=== PATIENT | male | born 1950 | race Caucasian/White ===

== ENCOUNTER 2016-06-06 14:00 | Emergency (ER) | payer MEDICARE ==
[2016-06-06 15:57] LABS: HEMOGLOBIN 14.5 gm/dl (14.0-17.5); RED BLOOD COUNT 4.88 M/UL (4.20-5.50); WHITE BLOOD COUNT 5.9 K/UL (4.5-11.0)
[2016-06-06 16:08] LABS: BUN/CREATININE RATIO 24 (0-10)
== END 2016-06-06 17:30 | disposition home or self-care (01) ==
LOC: ER1 14:00
PROVIDERS: Physician Assistant
DX: E11.65 Type 2 diabetes mellitus with hyperglycemia (principal); E78.5 Hyperlipidemia, unspecified; Z79.84 Long term (current) use of oral hypoglycemic drugs; Z79.4 Long term (current) use of insulin; Z79.899 Other long term (current) drug therapy
CPT/HCPCS: 36415; 71010; 80053; 81001; 82009; 82962; 85025; 96360; 99285

== ENCOUNTER → 2016-07-01 | Outpatient (CLI) | payer MEDICARE | LOC: KOH-I 13:57 | DX: M25.512 Pain in left shoulder (principal) | CPT/HCPCS: 73030 ==

== ENCOUNTER → 2016-07-20 | Outpatient (CLI) | payer MEDICARE | LOC: CT 14:15 | DX: M25.512 Pain in left shoulder (principal); M19.012 Primary osteoarthritis, left shoulder | CPT/HCPCS: 73200 ==

== ENCOUNTER → 2020-05-13 | Outpatient (CLI) | payer MEDICARE | LOC: KOH-I 05-07 14:30 | DX: R42 Dizziness and giddiness (principal); M50.30 Other cervical disc degeneration, unspecified cervical region; G31.9 Degenerative disease of nervous system, unspecified; M50.321 Other cervical disc degeneration at C4-C5 level; M48.02 Spinal stenosis, cervical region | CPT/HCPCS: 70450; 72125 ==

== ENCOUNTER 2021-05-03 15:52 | Inpatient (IN) | payer MEDICARE, MEDICAID ==
[~2021-05-03] VITALS: Ht 175.3 cm; Wt 85.3 kg
[2021-05-03 16:50] LABS: HEMOGLOBIN 12.5 gm/dl (14.0-17.5); RED BLOOD COUNT 4.21 M/UL (4.20-5.50); WHITE BLOOD COUNT 10.7 K/UL (4.5-11.0)
[2021-05-03 17:20] LABS: BUN/CREATININE RATIO 22 (0-10)
--- NOTE | 2021-05-04 02:12 | NUR ---
ATTEMPT WAS MADE TO CALL THE EMERGENCY CONTACT ON FILE AND IT WAS A DISCONNECTED NUMBER. THE PT DOES NOT HAVE ANY ONE ELSES PHONE NUMBER AND HAS NO CELL PHONE. THE PT DOES NOT KNOW ALL OF HIS HOME MEDS OTHER THAN HIS PAIN MEDICATION BUT STATES HE DOES TAKE OTHERS.
[2021-05-04] MEDS ORDERED: OXYCODONE-ACET1 EACH PO (02:20)
[2021-05-04] MEDS ORDERED: FLOMAX 0.4 MG0.4 MG PO (02:21)
[2021-05-04] MEDS ORDERED: NOVOLOG FL100 UNIT/1 INJ (02:21)
[2021-05-04] MEDS ORDERED: ETODOLAC500 MG PO (02:21)
[2021-05-04] MEDS ORDERED: GABAPENTIN600 MG PO (02:22)
[2021-05-04] MEDS ORDERED: LEVEMIR FL100 UNIT/1 SQ (02:23)
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
[2021-05-04 05:46] LABS: HEMOGLOBIN 11.4 gm/dl (14.0-17.5); RED BLOOD COUNT 3.91 M/UL (4.20-5.50); WHITE BLOOD COUNT 9.9 K/UL (4.5-11.0)
[2021-05-04 05:59] LABS: BUN/CREATININE RATIO 31 (0-10)
[2021-05-04] MEDS ORDERED: FARXIGA10 MG PO (09:31)
[2021-05-04] MEDS ORDERED: SILVADENE20 GM TOP (09:31)
[2021-05-04] MEDS ORDERED: ZETIA10 MG PO (09:31)
[2021-05-05 10:17] LABS: HEMOGLOBIN 11.2 gm/dl (14.0-17.5); RED BLOOD COUNT 3.9 M/UL (4.20-5.50); WHITE BLOOD COUNT 10.6 K/UL (4.5-11.0)
[2021-05-05 10:38] LABS: BUN/CREATININE RATIO 56 (0-10)
[2021-05-06 06:20] LABS: HEMOGLOBIN 11.3 gm/dl (14.0-17.5); RED BLOOD COUNT 3.89 M/UL (4.20-5.50)
[2021-05-06 06:38] LABS: BUN/CREATININE RATIO 53 (0-10)
[2021-05-07 04:48] LABS: HEMOGLOBIN 11.6 gm/dl (14.0-17.5); RED BLOOD COUNT 4.13 M/UL (4.20-5.50)
[2021-05-07 04:53] LABS: WHITE BLOOD COUNT 6.3 K/UL (4.5-11.0)
[2021-05-07 05:14] LABS: BUN/CREATININE RATIO 39 (0-10)
[2021-05-07] MEDS ORDERED: ELIQUIS2.5 MG PO (09:29)
[2021-05-07] MEDS ORDERED: LANTUS INS100 UTS/M1 SC (09:29)
[2021-05-07] MEDS ORDERED: DECADRON6 MG PO (09:29)
[2021-05-07] MEDS ORDERED: IPRAT-ALBUT 0.5-3 ML INH (09:58)
[2021-05-07] MEDS ORDERED: OMNICEF 300 MG300 MG PO (09:58)
[2021-05-07] MEDS ORDERED: DOXYCYCLINE HY100 M2 PO (09:58)
== END 2021-05-07 18:49 | disposition home or self-care (01) | DRG 177 ==
LOC: ER1 15:52 → CDU 20:14 → MED SURG 4 20:14
PROVIDERS: Internal Medicine; Physician Assistant; ADMIT Internal Medicine
PROC: XW033E5 Introduction of Remdesivir Anti-infective into Peripheral Vein, Percutaneous Approach, New Technology Group 5 (ICD-10-PCS; 2021-05-03)
PROC: 3E0333Z Introduction of Anti-inflammatory into Peripheral Vein, Percutaneous Approach (ICD-10-PCS; 2021-05-03)
PROC: 8E0ZXY6 Isolation (ICD-10-PCS; principal; 2021-05-04)
PROC: XW033H5 Introduction of Tocilizumab into Peripheral Vein, Percutaneous Approach, New Technology Group 5 (ICD-10-PCS; 2021-05-06)
DX: U07.1 COVID-19 (principal); J12.82 Pneumonia due to coronavirus disease 2019; J96.01 Acute respiratory failure with hypoxia; J15.9 Unspecified bacterial pneumonia; J44.0 Chronic obstructive pulmonary disease with (acute) lower respiratory infection; E86.0 Dehydration; F17.210 Nicotine dependence, cigarettes, uncomplicated; E11.40 Type 2 diabetes mellitus with diabetic neuropathy, unspecified; Z79.4 Long term (current) use of insulin; Z79.01 Long term (current) use of anticoagulants; Z79.82 Long term (current) use of aspirin; Z98.890 Other specified postprocedural states; Z99.81 Dependence on supplemental oxygen; Z23 Encounter for immunization
CPT/HCPCS: 36415; 36600; 71045; 80053; 82550; 82553; 82803; 82962; 83605; 83874; 84484; 85025; 85027; 86140; 93005; 94664; 96372; 96374; 99285; J0248; J1100; J1650; J7030; Q0249; U0002

== ENCOUNTER → 2021-05-20 | Outpatient (CLI) | payer MEDICARE ==
[~2021-05-20] MED LIST: DECADRON6 MG PO; DOXYCYCLINE HY100 M2 PO; ELIQUIS2.5 MG PO; ETODOLAC500 MG PO; FARXIGA10 MG PO; FLOMAX 0.4 MG0.4 MG PO; GABAPENTIN600 MG PO; IPRAT-ALBUT 0.5-3 ML INH; LANTUS INS100 UTS/M1 SC; LEVEMIR FL100 UNIT/1 SQ; NOVOLOG FL100 UNIT/1 INJ; OMNICEF 300 MG300 MG PO; OXYCODONE-ACET1 EACH PO; SILVADENE20 GM TOP; ZETIA10 MG PO
== END ==
LOC: EXRD 13:11
DX: E11.9 Type 2 diabetes mellitus without complications (principal)
CPT/HCPCS: 73030

== ENCOUNTER → 2021-06-16 | Outpatient (CLI) | payer MEDICARE | END | disposition home or self-care (01) | LOC: WCC 09:43 | DX: E11.621 Type 2 diabetes mellitus with foot ulcer (principal); L97.412 Non-pressure chronic ulcer of right heel and midfoot with fat layer exposed; E11.40 Type 2 diabetes mellitus with diabetic neuropathy, unspecified; L84 Corns and callosities; Z79.4 Long term (current) use of insulin ==

== ENCOUNTER → 2021-10-24 | Outpatient (CLI) | payer MEDICARE | LOC: KOH-I 14:05 | DX: M25.552 Pain in left hip (principal) | CPT/HCPCS: 73502 ==